=== PATIENT | male | born 1970 | race Caucasian/White ===

== ENCOUNTER 2017-12-19 10:10 | Emergency (ER) | payer BC ==
[2017-12-19 12:04] VITALS: BP 137/76
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
== END 2017-12-19 13:42 | disposition home or self-care (01) ==
LOC: UCCORT 10:10
DX: J10.1 Influenza due to other identified influenza virus with other respiratory manifestations (principal); Z88.5 Allergy status to narcotic agent
CPT/HCPCS: 87502; 99212; G0463

== ENCOUNTER 2017-12-24 18:18 | Emergency (ER) | payer BC ==
[2017-12-24 19:13] VITALS: BP 131/75
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
--- NOTE | 2017-12-24 20:07 | RAD ---
INDICATION: Cough. Chest pain COMPARISON: August 11, 2013 TECHNIQUE: PA and lateral dual-energy views were obtained. FINDINGS: Bones/Soft Tissues: There are no acute bony findings. Cardiomediastinal: The cardiomediastinal silhouette is normal. Lungs: There are no infiltrates. Pleura: There are no pleural effusions. Other: None IMPRESSION: NO ACTIVE DISEASE.
== END 2017-12-24 20:36 | disposition home or self-care (01) ==
LOC: UCCORT 18:18
DX: J40 Bronchitis, not specified as acute or chronic (principal)
CPT/HCPCS: 71046; 93005; 99212; G0463

== ENCOUNTER 2018-05-05 18:46 | Emergency (ER) | payer BC, OTHER ==
[2018-05-05 19:07] VITALS: BP 151/99
[2018-05-05] MEDS ORDERED: predniSONE TAB* 20 MG PO ONE (19:21)
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
== END 2018-05-05 19:28 | disposition home or self-care (01) ==
LOC: UCCORT 18:46
DX: L23.7 Allergic contact dermatitis due to plants, except food (principal); T63.791A Toxic effect of contact with other venomous plant, accidental (unintentional), initial encounter; Y92.9 Unspecified place or not applicable; Z88.5 Allergy status to narcotic agent; E11.9 Type 2 diabetes mellitus without complications; I10 Essential (primary) hypertension
CPT/HCPCS: 99212; G0463; J7512